=== PATIENT | male | born 1965 | race Hispanic/Latino ===

== ENCOUNTER 2016-11-09 07:33 | Emergency (ER) | payer OTHER ==
[2016-11-09 07:39] VITALS: BMI 38.2
[2016-11-09 07:53] VITALS: BP 141/93; PULSE 72; RESP 18; TEMP 97.8; O2SAT 97
--- NOTE | 2016-11-09 08:14 | ED PDOC ---
Arrival/HPI <ANGEL WASSERMAN - Last Filed: 11/09/16 09:08> <Alexander Dickinson - Last Filed: 11/09/16 09:12> - General Chief Complaint: Lower Extremity Problem/Injury Time Seen by Provider: 11/09/16 07:42 - History of Present Illness Narrative History of Present Illness (Text): 11/09/16 08:13 Mr. Machuca is a 51 year old male who presents with left lower leg pain for the past week. He reports he slipped and fell while getting onto a bus about a week ago striking his left medial ankle and lower leg. He denies any breaking of the skin or inability to ambulate after his fall. He reports for the past week he has had progressively worsening pain and swelling without relieve. He has taken NSAIDS and has continued to ambulate without rest. He indicates he feels a tightness with extension and flexion primarily. He does report some numbness to touch of his left leg in comparison to his right leg. (ANGEL WASSERMAN) Past Medical History - Provider Review Nursing Documentation Reviewed: Yes - Past History Past History: No Previous - Infectious Disease Hx of Infectious Diseases: None - Tetanus Immunization Tetanus Immunization: Up to Date - Past Medical History Past Medical History: No Previous - Gastrointestinal Hx Gastroesophageal Reflux: Yes - Psychiatric Hx Depression: No Hx Emotional Abuse: No Hx Physical Abuse: No Hx Substance Use: No - Past Surgical History Past Surgical History: Non-Contributing - Surgical History Hx Tonsillectomy: Yes - Anesthesia Hx Anesthesia: Yes Hx Anesthesia Reactions: No Hx Malignant Hyperthermia: No - Suicidal Assessment Feels Threatened In Home Enviroment: No <ANGEL WASSERMAN - Last Filed: 11/09/16 09:08> Family/Social History - Physician Review Nursing Documentation Reviewed: Yes Family/Social History: No Known Family HX Smoking Status: Never Smoked Hx Alcohol Use: No Hx Substance Use: No Hx Substance Use Treatment: No <ANGEL WASSERMAN - Last Filed: 11/09/16 09:08> Allergies/Home Meds <ANGEL WASSERMAN - Last Filed: 11/09/16 09:08> <Alexander Dickinson - Last Filed: 11/09/16 09:12> Allergies/Adverse Reactions: Allergies erythromycin base Allergy (Verified 11/09/16 07:53) RASH iodine Allergy (Verified 11/09/16 07:53) VOMITING Penicillins Allergy (Verified 11/09/16 07:53) RASH Home Medications: Home Meds Medication Instructions Recorded Confirmed Omeprazole 20 mg PO DAILY 11/09/16 11/09/16 Review of Systems - Physician Review All systems were reviewed & negative as marked: Yes - Review of Systems Constitutional: absent: Fatigue, Weight Change Eyes: absent: Vision Changes, Photophobia Respiratory: absent: SOB, Cough Cardiovascular: absent: Chest Pain, Palpitations Gastrointestinal: absent: Abdominal Pain, Stool Changes Genitourinary Male: absent: Dysuria, Frequency Musculoskeletal: Joint Swelling (left ankle), Other (left anterior tibia to medial ankle) Neurological: absent: Headache, Focal Weakness Psychiatric: absent: Anxiety, Depression <ANGEL WASSERMAN - Last Filed: 11/09/16 09:08> Physical Exam Vital Signs Reviewed: Yes Temperature: Afebrile Blood Pressure: Hypertensive Pulse: Regular Respiratory Rate: Normal Appearance: Positive for: Well-Appearing Pain Distress: Mild Mental Status: Positive for: Alert and Oriented X 3 - Systems Exam Head: Present: Atraumatic, Normocephalic Pupils: Present: PERRL Extroacular Muscles: Present: EOMI Conjunctiva: Present: Normal Mouth: Present: Moist Mucous Membranes Neck: Present: Normal Range of Motion. No: MIDLINE TENDERNESS Respiratory/Chest: Present: Clear to Auscultation, Good Air Exchange. No: Respiratory Distress, Accessory Muscle Use Cardiovascular: Present: Regular Rate and Rhythm, Normal S1, S2. No: Murmurs Abdomen: Present: Normal Bowel Sounds. No: Tenderness, Distention, Peritoneal Signs Upper Extremity: Present: Normal Inspection, Normal ROM, NORMAL PULSES. No: Cyanosis, Edema Lower Extremity: Present: NORMAL PULSES (bilateral ), Normal ROM (bilateral ), Tenderness (left anterior tibia to medial malleolus ), Swelling (left ankle), Capillary Refill < 2 s (bilateral ) Neurological: Present: GCS=15, CN II-XII Intact, Speech Normal Skin: Present: Warm, Dry, Normal Color. No: Rashes Psychiatric: Present: Alert, Oriented x 3, Normal Insight, Normal Concentration <ANGEL WASSERMAN Last Filed: 11/09/16 09:08> Medical Decision Making <ANGEL WASSERMAN - Last Filed: 11/09/16 09:08> <Alexander Dickinson - Last Filed: 11/09/16 09:12> ED Course and Treatment: 11/09/16 08:31 Impression: 51 year old male complaining of left lower leg pain for the past week Differential Diagnosis included but are not limited to: - Compartment syndrome - DVT - Left lower leg fracture - Bone contusion - high ankle sprain Plan: - Xray Left tibia/fibia & ankle - Venous U/S - Reassess and disposition Progress Notes: Doppler U/S: negative for DVT Xray: Negative for acute findings for fracture 11/09/16 09:08 (ANGEL WASSERMAN) A 51 year old male with left lower leg pain. In agreement with resident note, which includes further HPI details. Patient was seen and evaluated with resident , came up with plan and treatment together. 11/09/16 09:12 Seen and examined with the resident. Our history and physical exam reveals a gentleman who injured his left lower extremity approximately one week ago in [place]. He has continued pain and swelling. He has been ambulatory. No signs of a compartment syndrome. 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 MD/DO has examined the patient and agrees with the treatment plan. <ANGEL WASSERMAN - Last Filed: 11/09/16 09:08> - Scribe Statement The provider has reviewed the documentation as recorded by the Scribe <Alexander Dickinson - Last Filed: 11/09/16 09:12> - Scribe Statement Susanne Callejas Provider Scribe Attestation: All medical record entries made by the Scribe were at my direction and personally dictated by me. I have reviewed the chart and agree that the record accurately reflects my personal performance of the history, physical exam, medical decision making, and the department course for this patient. I have also personally directed, reviewed, and agree with the discharge instructions and disposition. (Alexander Dickinson) Disposition/Present on Arrival - Present on Arrival Any Indicators Present on Arrival: No History of DVT/PE: No History of Uncontrolled Diabetes: No Urinary Catheter: No History of Decub. Ulcer: No History Surgical Site Infection Following: None - Disposition Have Diagnosis and Disposition been Completed?: Yes Disposition Time: 09:10 <ANGEL WASSERMAN - Last Filed: 11/09/16 09:08> <Alexander Dickinson - Last Filed: 11/09/16 09:12> - Disposition Diagnosis: Sprain of ankle, left Disposition: HOME/ ROUTINE Patient Problems: Current Active Problems Problem Status Onset Sprain of ankle, left Acute Condition: GOOD Referrals: [facility] Rebecca Green, [Primary Care Provider] - Follow up with primary
--- NOTE | 2016-11-09 09:11 | RAD ---
PROCEDURE: Radiographs of the left tibia and fibula. HISTORY: left ankle pain COMPARISON: None available. TECHNIQUE: Frontal and lateral views obtained. FINDINGS: BONES: No fracture or destructive lesion. JOINT SPACES: Unremarkable. OTHER FINDINGS: None. IMPRESSION: Unremarkable radiographs of the left tibia and fibula.
--- NOTE | 2016-11-09 09:12 | RAD ---
PROCEDURE: Left Ankle Radiographs. HISTORY: left ankle pain COMPARISON: None FINDINGS: BONES: Normal. No fracture. JOINTS: Normal. No osteoarthritis. Ankle mortise maintained. Talar dome intact SOFT TISSUES: Normal. OTHER FINDINGS: None. IMPRESSION: Normal left ankle radiographs.
--- NOTE | 2016-11-09 14:02 | US ---
PROCEDURE: Left lower extremity venous US HISTORY: Leg pain and swelling. Evaluate for DVT. PHYSICIAN(S): Devon Gonzalez MD. TECHNIQUE: Duplex sonography and color-flow Doppler with graded compression were used to evaluate the deep venous system of the left lower extremity. FINDINGS: The visualized deep venous system of the left lower extremity is sonographically normal and compressible. Normal wave forms and augmentation are seen. There is no sonographic evidence for deep venous thrombosis in the visualized segments of the left lower extremity. IMPRESSION: 1. No sonographic evidence for deep venous thrombosis in the visualized segments of the left lower extremity.
== END 2016-11-09 09:15 | disposition home or self-care (01) ==
LOC: ED 07:33
DX: S93.402A Sprain of unspecified ligament of left ankle, initial encounter (principal); W01.0XXA Fall on same level from slipping, tripping and stumbling without subsequent striking against object, initial encounter; Y93.89 Activity, other specified; Y92.89 Other specified places as the place of occurrence of the external cause

== ENCOUNTER 2016-11-20 23:50 | Emergency (ER) | payer OTHER ==
[2016-11-20 23:51] VITALS: BMI 38.2
--- NOTE | 2016-11-21 00:09 | ED PDOC ---
Arrival/HPI - General Time Seen by Provider: 11/20/16 23:55 Historian: Patient - History of Present Illness Narrative History of Present Illness (Text): 11/21/16 00:04 Cameron Machuca is a 51 year old male who presents to the Emergency department complaining of back pain tonight. 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 Patient denies any chest pain, shortness of breath, nausea, vomiting, neck pain, headache, dizziness, or any other complaints. Patient states he took Motrin for pain. Time/Duration: Other (tonight) Symptom Onset: Sudden Symptom Course: Unchanged Activities at Onset: Significant (Restraining patient) Context: Work Past Medical History - Provider Review Nursing Documentation Reviewed: Yes - Past History Past History: No Previous - Infectious Disease Hx of Infectious Diseases: None - Tetanus Immunization Tetanus Immunization: Up to Date - Past Medical History Past Medical History: No Previous - Gastrointestinal Hx Gastroesophageal Reflux: Yes - Psychiatric Hx Depression: No Hx Emotional Abuse: No Hx Physical Abuse: No Hx Substance Use: No - Past Surgical History Past Surgical History: Non-Contributing - Surgical History Hx Tonsillectomy: Yes - Anesthesia Hx Anesthesia: Yes Hx Anesthesia Reactions: No Hx Malignant Hyperthermia: No - Suicidal Assessment Feels Threatened In Home Enviroment: No Family/Social History - Physician Review Nursing Documentation Reviewed: Yes Family/Social History: Unknown Family HX Smoking Status: Never Smoked Hx Alcohol Use: No Hx Substance Use: No Hx Substance Use Treatment: No Allergies/Home Meds Allergies/Adverse Reactions: Allergies erythromycin base Allergy (Verified 11/09/16 07:53) RASH iodine Allergy (Verified 11/09/16 07:53) VOMITING Penicillins Allergy (Verified 11/09/16 07:53) RASH Home Medications: Home Meds Medication Instructions Recorded Confirmed Omeprazole 20 mg PO DAILY 11/09/16 11/09/16 Review of Systems - Physician Review All systems were reviewed & negative as marked: Yes - Review of Systems Constitutional: Normal. absent: Fevers Eyes: Normal ENT: Normal Respiratory: Normal. absent: SOB, Cough Cardiovascular: Normal. absent: Chest Pain Gastrointestinal: Normal. absent: Abdominal Pain, Diarrhea, Nausea, Vomiting Genitourinary Male: Normal. absent: Dysuria, Frequency, Hematuria, Urinary Output Changes Musculoskeletal: Back Pain. absent: Neck Pain Skin: Normal. absent: Rash Neurological: Normal. absent: Headache, Dizziness Endocrine: Normal Hemo/Lymphatic: Normal Psychiatric: Normal Physical Exam Vital Signs Reviewed: Yes Vital Signs Temp Pulse Resp BP Pulse Ox 11/21/16 00:50 98.0 F 70 18 135/70 98 11/20/16 23:51 98.0 F 75 18 133/106 H 97 Temperature: Afebrile Blood Pressure: Normal Pulse: Regular Respiratory Rate: Normal Appearance: Positive for: Well-Appearing, Non-Toxic, Comfortable Pain Distress: None Mental Status: Positive for: Alert and Oriented X 3 - Systems Exam Head: Present: Atraumatic, Normocephalic Pupils: Present: PERRL Extroacular Muscles: Present: EOMI Conjunctiva: Present: Normal Mouth: Present: Moist Mucous Membranes Neck: Present: Normal Range of Motion Respiratory/Chest: Present: Clear to Auscultation, Good Air Exchange. No: Respiratory Distress, Accessory Muscle Use Cardiovascular: Present: Regular Rate and Rhythm, Normal S1, S2. No: Murmurs Abdomen: Present: Normal Bowel Sounds. No: Tenderness, Distention, Peritoneal Signs Back: Present: Normal Inspection. No: CVA Tenderness, Midline Tenderness, Paraspinal Tenderness Upper Extremity: Present: Normal Inspection. No: Cyanosis, Edema Lower Extremity: Present: Normal Inspection. No: Edema Neurological: Present: GCS=15, CN II-XII Intact, Speech Normal Skin: Present: Warm, Dry, Normal Color. 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 Differential Diagnosis included but are not limited to: muscular strain Plan: -- Reassess and disposition Progress Notes: 11/21/16 00:19 Reevaluation: On reevaluation the patient feels better and is in no acute distress. Patient is stable for discharge. Patient was instructed to follow up with physician/ clinic/worker's health in 1-2 days or return if symptoms persist/worsen or new concerning symptoms arise. - Scribe Statement The provider has reviewed the documentation as recorded by the Vikas Gonzalez Provider Scribe Attestation: All medical record entries made by the Scribyasir were at my direction and personally dictated by me. I have reviewed the chart and agree that the record accurately reflects my personal performance of the history, physical exam, medical decision making, and the department course for this patient. I have also personally directed, reviewed, and agree with the discharge instructions and disposition. Disposition/Present on Arrival - Present on Arrival Any Indicators Present on Arrival: No History of DVT/PE: No History of Uncontrolled Diabetes: No Urinary Catheter: No History Surgical Site Infection Following: None - Disposition Have Diagnosis and Disposition been Completed?: Yes Diagnosis: Muscle strain Disposition: HOME/ ROUTINE Disposition Time: 00:19 Patient Plan: Discharge Condition: GOOD Discharge Instructions (ExitCare): Muscle Strain (ED) Additional Instructions: Rest/no strenuous physical activity/advil as directed/follow up with your doctor Prescriptions: Cyclobenzaprine [Cyclobenzaprine HCl] 10 mg PO TID PRN #15 tab PRN Reason: Muscle Spasm Forms: [facility] (U[place]ayan), WORK NOTE
[2016-11-21 03:44] VITALS: RESP 18; TEMP 98
[2016-11-21 03:45] VITALS: BP 135/70; PULSE 70; O2SAT 98
== END 2016-11-21 00:55 | disposition home or self-care (01) ==
LOC: ED 23:50
DX: S29.012A Strain of muscle and tendon of back wall of thorax, initial encounter (principal); X50.0XXA Overexertion from strenuous movement or load, initial encounter; Y93.89 Activity, other specified; Y92.89 Other specified places as the place of occurrence of the external cause; Y99.8 Other external cause status

== ENCOUNTER 2017-06-08 04:20 | Emergency (ER) | payer OTHER ==
[2017-06-08 04:21] VITALS: BMI 38.2
[2017-06-08 04:38] VITALS: BP 118/68; PULSE 82; RESP 18; TEMP 97.8; O2SAT 95
--- NOTE | 2017-06-08 05:08 | ED PDOC ---
Arrival/HPI - General Chief Complaint: Lower Extremity Problem/Injury Time Seen by Provider: 06/08/17 04:36 Historian: Patient - History of Present Illness Narrative History of Present Illness (Text): 06/08/17 05:04 Cameron Machuca is a 51 year old male who presents to the Emergency department complaining of left knee discomfort after hitting and briefly trapped against a stretcher tonight. Patient able to ambulate without difficulty but describes discomfort when doing so.. Patient denies any numbness/weakness/tingling of the extremity, back pain, neck pain, headache, dizziness or any other complaints. Time/Duration: 1 hour Symptom Course: Unchanged Activities at Onset: Light Context: Walking, Work Past Medical History - Provider Review Nursing Documentation Reviewed: Yes - Past History Past History: No Previous - Infectious Disease Hx of Infectious Diseases: None - Tetanus Immunization Tetanus Immunization: Up to Date - Past Medical History Past Medical History: No Previous - Gastrointestinal Hx Gastroesophageal Reflux: Yes - Psychiatric Hx Depression: No Hx Emotional Abuse: No Hx Physical Abuse: No Hx Substance Use: No - Past Surgical History Past Surgical History: Non-Contributing - Surgical History Hx Tonsillectomy: Yes - Anesthesia Hx Anesthesia: Yes Hx Anesthesia Reactions: No Hx Malignant Hyperthermia: No - Suicidal Assessment Feels Threatened In Home Enviroment: No Family/Social History - Physician Review Nursing Documentation Reviewed: Yes Family/Social History: Unknown Family HX Smoking Status: Never Smoked Hx Alcohol Use: No Hx Substance Use: No Hx Substance Use Treatment: No Allergies/Home Meds Allergies/Adverse Reactions: Allergies erythromycin base Allergy (Verified 06/08/17 04:38) RASH iodine Allergy (Verified 06/08/17 04:38) VOMITING Penicillins Allergy (Verified 06/08/17 04:38) RASH Home Medications: Home Meds Medication Instructions Recorded Confirmed Omeprazole 20 mg PO DAILY 11/09/16 06/08/17 Review of Systems - Physician Review All systems were reviewed & negative as marked: Yes - Review of Systems Constitutional: Normal Eyes: Normal ENT: Normal Respiratory: Normal. absent: SOB, Cough Cardiovascular: Normal. absent: Chest Pain, Palpitations Gastrointestinal: Normal. absent: Abdominal Pain, Diarrhea, Nausea, Vomiting Genitourinary Male: Normal. absent: Dysuria, Frequency, Hematuria, Urinary Output Changes Musculoskeletal: Arthralgias (+left knee discomfort). absent: Back Pain, Neck Pain Skin: Normal. absent: Rash Neurological: Normal. absent: Headache, Dizziness Endocrine: Normal Hemo/Lymphatic: Normal Psychiatric: Normal Physical Exam Vital Signs Reviewed: Yes Vital Signs Temp Pulse Resp BP Pulse Ox 06/08/17 04:34 97.8 F 82 18 118/68 95 Temperature: Afebrile Blood Pressure: Normal Pulse: Regular Respiratory Rate: Normal Appearance: Positive for: Well-Appearing, Non-Toxic, Comfortable Pain Distress: None Mental Status: Positive for: Alert and Oriented X 3 - Systems Exam Head: Present: Atraumatic, Normocephalic Pupils: Present: PERRL Extroacular Muscles: Present: EOMI Conjunctiva: Present: Normal Mouth: Present: Moist Mucous Membranes Neck: Present: Normal Range of Motion Respiratory/Chest: Present: Clear to Auscultation, Good Air Exchange. No: Respiratory Distress, Accessory Muscle Use Cardiovascular: Present: Regular Rate and Rhythm, Normal S1, S2. No: Murmurs Abdomen: Present: Normal Bowel Sounds. No: Tenderness, Distention, Peritoneal Signs Back: Present: Normal Inspection Upper Extremity: Present: Normal Inspection. No: Cyanosis, Edema Lower Extremity: Present: NORMAL PULSES, Normal ROM, Tenderness (slight discomfort with left knee flexion), Neurovascularly Intact, Capillary Refill < 2 s. No: Edema, CALF TENDERNESS, Cyanosis, Swelling, Erythema, Deformity, Temperature Abnormalties Neurological: Present: GCS=15, CN II-XII Intact, Speech Normal Skin: Present: Warm, Dry, Normal Color. No: Rashes Psychiatric: Present: Alert, Oriented x 3, Normal Insight, Normal Concentration Medical Decision Making ED Course and Treatment: 06/08/17 05:10 Impression: 51 year old male presents to the Emergency department with left knee discomfort. Plan: -- Xray Left Knee -- Reassess and disposition Progress Notes: 06/08/17 06:08 Reviewed radiology, XR Left Knee shows no acute processes, no fracture. - RAD Interpretation Radiology Orders: 06/08/17 05:04 KNEE WITH PATELLA LEFT 3 VIEW [RAD] Stat Paleontological Helper: ED Physician - Medication Orders Current Medication Orders: Discontinued Medications Ibuprofen (Motrin Tab) 600 mg PO STAT STA Stop: 06/08/17 06:12 - Scribe Statement The provider has reviewed the documentation as recorded by the Vikas Oconnell training under Mechelle Gonzalez All medical record entries made by the Candyibyasir were at my direction and personally dictated by me. I have reviewed the chart and agree that the record accurately reflects my personal performance of the history, physical exam, medical decision making, and the department course for this patient. I have also personally directed, reviewed, and agree with the discharge instructions and disposition. Disposition/Present on Arrival - Present on Arrival Any Indicators Present on Arrival: No History of DVT/PE: No History of Uncontrolled Diabetes: No Urinary Catheter: No History of Decub. Ulcer: No History Surgical Site Infection Following: None - Disposition Have Diagnosis and Disposition been Completed?: Yes Diagnosis: Knee contusion Disposition: HOME/ ROUTINE Disposition Time: 06:10 Patient Plan: Discharge Condition: GOOD Discharge Instructions (ExitCare): Contusion in Adults (ED), Knee Pain (ED) Additional Instructions: Rest/advil as directed/follow up with your doctor Forms: [facility] (Qatari), WORK NOTE
--- NOTE | 2017-06-08 09:03 | RAD ---
PROCEDURE: Left Knee Radiographs. HISTORY: Pain. COMPARISON: None. FINDINGS: BONES: No acute fracture or destructive bony lesion identified. JOINTS: Mild joint space narrowing in all 3 compartments is suggestive of degenerative joint disease. JOINT EFFUSION: None. OTHER FINDINGS: None. IMPRESSION: No acute fracture or dislocation identified. Degenerative joint disease appreciated as discussed above.
== END 2017-06-08 08:49 | disposition home or self-care (01) ==
LOC: ED 04:20
DX: S80.02XA Contusion of left knee, initial encounter (principal); W22.8XXA Striking against or struck by other objects, initial encounter; Y93.89 Activity, other specified; Y92.89 Other specified places as the place of occurrence of the external cause; Y99.8 Other external cause status